=== PATIENT | female | born 1980 | race Caucasian/White ===

== ENCOUNTER → 2019-02-09 | Outpatient (CLI) | payer OTHER, BC | END | disposition home or self-care (01) | LOC: PLD 07:33 → LAB SHORT 07:33 → LAB 07:33 | DX: D22.72 Melanocytic nevi of left lower limb, including hip (principal); D48.5 Neoplasm of uncertain behavior of skin | CPT/HCPCS: 88305 ==

== ENCOUNTER → 2019-02-18 | Outpatient (CLI) | payer OTHER, BC | END | disposition home or self-care (01) | LOC: LAB SHORT 14:55 → PLD 14:55 | DX: D48.5 Neoplasm of uncertain behavior of skin (principal) | CPT/HCPCS: 88305 ==

== ENCOUNTER → 2021-03-11 | Outpatient (CLI) | payer OTHER, BC | END | disposition home or self-care (01) | LOC: LAB 07:21 → LAB SHORT 07:21 | DX: L81.4 Other melanin hyperpigmentation (principal) | CPT/HCPCS: 88305 ==

== ENCOUNTER → 2021-05-07 | Outpatient (CLI) | payer OTHER, BC | END | disposition home or self-care (01) | LOC: LAB SHORT 16:39 → LAB 16:39 | DX: J02.9 Acute pharyngitis, unspecified (principal) | CPT/HCPCS: 87081 ==